=== PATIENT | female | born 1965 | race Caucasian/White ===

== ENCOUNTER 2019-06-22 16:22 | Emergency (ER) | payer MEDICAID ==
[~2019-06-22] VITALS: Ht 175.3 cm; Wt 59.2 kg
--- NOTE | 2019-06-22 16:46 | NUR ---
first contact with pt. pt reports LLQ abd pain with nausea starting this morning. pt denies any other sx at this time. pt's aox4. resps even and unlabored. bp/spo2 monitors in place. call light within reach.
[2019-06-22] MEDS ORDERED: ONDANSETRON 2MG/ML, 2ML ONE (16:55)
[2019-06-22] MEDS ORDERED: ONDANSETRON 2MG/ML, 2ML IVPush ONE (17:00)
[2019-06-22 17:16] LABS: BASOPHILS # (AUTO) 0.04 x10^3/uL (0-0.1); BASOPHILS % (AUTO) 1 % (0-1); EOSINOPHILS # (AUTO) 0.08 x10^3/uL (0-0.4); EOSINOPHILS % (AUTO) 2 % (1-7); LYMPHOCYTES # (AUTO) 0.68 x10^3/uL (1-3.4); LYMPHOCYTES % (AUTO) 17 % (22-44); MD NO; MEAN CORPUSCULAR HGB CONC 33.2 g/dL (32.4-35.8); MEAN CORPUSCULAR VOLUME 90.2 fL (80-100); MONOCYTES # (AUTO) 0.43 x10^3/uL (0.2-0.8); MONOCYTES % (AUTO) 11 % (2-9); NEUTROPHILS # (AUTO) 2.83 x10^3/uL (1.8-6.8); NEUTROPHILS % (AUTO) 70 % (42-75); PLATELET COUNT 220 x10^3/uL (130-400); RED BLOOD COUNT 4.66 x10^6/uL (3.82-5.3); RED CELL DISTRIBUTION WIDTH 14.1 % (9.6-15.2)
--- NOTE | 2019-06-22 17:17 | NUR ---
pt medicated per emar. pt tolerated well.
[2019-06-22 17:24] LABS: MICROSCOPIC AUTO
[2019-06-22 17:28] LABS: ALANINE AMINOTRANSFERASE 77 U/L (12-78); ALBUMIN 3.9 g/dL (3.4-5.0); ANION GAP 5 mmol/L (5-15); CALCIUM 9.3 mg/dL (8.5-10.1); CHLORIDE 107 mmol/L (98-107); CREATININE 0.86 mg/dL (0.55-1.02)
[2019-06-22 17:30] LABS: ALKALINE PHOSPHATASE 112 U/L (45-117); BILIRUBIN,TOTAL 0.8 mg/dL (0.2-1.0); TOTAL PROTEIN 8.3 g/dL (6.4-8.2)
[2019-06-22] MEDS ORDERED: MORPHINE SULFATE 4 MG/ML, 1ML ONE ×2 (17:44→18:33)
--- NOTE | 2019-06-22 17:49 | NUR ---
PT MEDICATED PER EMAR FOR PAIN. PT TOLERATED WELL.
[2019-06-22] MEDS ORDERED: MORPHINE SULFATE 4 MG/ML, 1ML IVPush ONE (18:00)
[2019-06-22] MEDS ORDERED: SODIUM CHLORIDE FLUSH 10ML SYR IVF ONE (18:00)
[2019-06-22] MEDS ORDERED: MORPHINE SULFATE 4 MG/ML, 1ML IVPush PRN (18:30)
--- NOTE | 2019-06-22 18:36 | NUR ---
PT MEDICATED PER EMAR FOR PAIN. PT TOLERATED WELL.
--- NOTE | 2019-06-22 19:01 | NUR ---
report given to edgard roca.
[2019-06-22] MEDS ORDERED: OMNIPAQUE 350 MG/ML, 100ML BOTTLE ONE (19:09)
[2019-06-22 20:07] VITALS: BP 164/88
== END 2019-06-22 20:09 | disposition home or self-care (01) ==
LOC: ED 19:45
DX: R10.32 Left lower quadrant pain (principal); F17.210 Nicotine dependence, cigarettes, uncomplicated
CPT/HCPCS: 36415; 74177; 80053; 81001; 83690; 85025; 96374; 96375; 96376; 99284; J2270; J2405; Q9967

== ENCOUNTER 2019-10-03 18:37 | Inpatient (IN) | payer MEDICAID ==
[~2019-10-03] VITALS: Ht 175.3 cm; Wt 63.5 kg
--- NOTE | 2019-10-03 19:18 | NUR ---
THIS IS A 53 YO F W/ C/O QUINN, BODYACHES, CHILLS, CHEST HEAVINESS, UPPR BACK PAIN, WEAKNESS.X2 DAYS. PT REPORTS NAUSEA W/ QUINN DENIES VOMITING/ABD PAIN. PT TACHYCARDIC AND HYPERTENSIVE. ALL OTHER VITALS IN NORMAL LIMITS. PT IS RESTING ON GURNEY W/ CALL LIGHT IN REACH. AWAITING ED EVAL.
[2019-10-03] MEDS ORDERED: METOCLOPRAMIDE 5 MG/ML, 2ML IVPush ONE (19:30)
[2019-10-03] MEDS ORDERED: SODIUM CHLORIDE 0.9% 1,000ML IVBOLUS ONE (19:30)
[2019-10-03] MEDS ORDERED: SODIUM CHLORIDE FLUSH 10ML SYR IVF ONE (19:30)
[2019-10-03] MEDS ORDERED: DIPHENHYDRAMINE 50 MG/ML, 1ML IVPush ONE (19:30)
[2019-10-03] MEDS ORDERED: DIPHENHYDRAMINE 50 MG/ML, 1ML ONE (19:39)
[2019-10-03] MEDS ORDERED: METOCLOPRAMIDE 5 MG/ML, 2ML ONE (19:39)
--- NOTE | 2019-10-03 20:00 | NUR ---
PIV STARTED. 1L NS STARTED, PT MEDICATED PER EMAR.
[2019-10-03] MEDS ORDERED: MORPHINE SULFATE 4 MG/ML, 1ML ONE (20:22)
[2019-10-03] MEDS ORDERED: MORPHINE SULFATE 4 MG/ML, 1ML IVPush PRN (20:30)
[2019-10-03] MEDS ORDERED: PLEASE ENTER ALLERGIES MC SCH (20:30)
--- NOTE | 2019-10-03 20:30 | NUR ---
PT MEDICATED WITH MORPHINE PER ORDER.
[2019-10-03 20:45] LABS: RAPID INFLUENZA A Negative (Negative); RAPID INFLUENZA B Negative (Negative)
--- NOTE | 2019-10-03 20:47 | NUR ---
PT TO RAD.
--- NOTE | 2019-10-03 21:20 | NUR ---
AT BEDSIDE UPDATING PT ON POC.
[2019-10-03] MEDS ORDERED: ASPIRIN 325 MG TABLET PO ONE (21:30)
--- NOTE | 2019-10-03 21:31 | NUR ---
CONCRETE FLOATER IN ROOM FOR REPEAT EKG.
[2019-10-03] MEDS ORDERED: ASPIRIN 325 MG TABLET ONE (21:34)
[2019-10-03] MEDS ORDERED: SODIUM CHLORIDE FLUSH 10ML SYR IVF PRN (22:00)
--- NOTE | 2019-10-03 22:33 | NUR ---
PT AMBULATED TO THE COMMODE W/ A STEADY GAIT.
--- NOTE | 2019-10-03 22:38 | NUR ---
REPORT GIVEN TO JIE HARMON. PT IS READY FOR TRANSFER.
[2019-10-03 23:21] VITALS: BP 168/95
[2019-10-03] MEDS ORDERED: ONDANSETRON 4 MG TABLET PO PRN (23:30)
[2019-10-03] MEDS ORDERED: DOCUSATE 100 MG CAPSULE PO PRN (23:30)
[2019-10-04 00:12] LABS: MEAN CORPUSCULAR HEMOGLOBIN 29.8 pg (27.0-34.8); MEAN CORPUSCULAR HGB CONC 33.5 g/dL (32.4-35.8); MEAN PLATELET VOLUME 8.2 fL (7.4-10.4); PLATELET COUNT 148 x10^3/uL (130-400); RED CELL DISTRIBUTION WIDTH 13.8 % (9.6-15.2)
[2019-10-04 00:16] LABS: MD YES
[2019-10-04 00:20] LABS: ALANINE AMINOTRANSFERASE 77 U/L (12-78); ALBUMIN 3.3 g/dL (3.4-5.0); ANION GAP 5 mmol/L (5-15); CALCIUM 8.1 mg/dL (8.5-10.1); CHLORIDE 104 mmol/L (98-107); CREATININE 0.74 mg/dL (0.55-1.02)
[2019-10-04 00:22] LABS: ALKALINE PHOSPHATASE 111 U/L (45-117); BILIRUBIN,TOTAL 0.6 mg/dL (0.2-1.0); TOTAL PROTEIN 6.9 g/dL (6.4-8.2)
[2019-10-04 00:24] LABS: <PLATELET ESTIMATE> ADEQUATE; <PLT MORPHOLOGY> NORMAL PLT MORPH; <RBC MORPHOLOGY> NORMAL; BASOS#(MANUAL) 0.03 x10^3/uL (0-0.1); BASOS% (MANUAL) 1 % (0-1); EOS#(MANUAL) 0.03 x10^3/uL (0.0-0.4); EOS% (MANUAL) 1 % (1-7); LYMPH#(MANUAL) 0.39 x10^3/uL (1-3.4); LYMPHS% (MANUAL) 13 % (22-44); MONOS#(MANUAL) 0.33 x10^3/uL (0.3-2.7); MONOS% (MANUAL) 11 % (2-9); REACTIVE LYMPHS # (MANUAL) 0.09 x10^3/uL (0-0); REACTIVE LYMPHS % (MANUAL) 3 % (0-0); SEG#(MANUAL) 2.13 x10^3/uL (1.8-6.8); SEGS% (MANUAL) 71 % (42-75)
[2019-10-04] MEDS: ATORVASTATIN 40 MG TABLET PO SCH ×2 (00:25→20:45)
[2019-10-04] MEDS: ACETAMINOPHEN 650 MG/20.3 ML UDC PO PRN ×3 (00:29→18:10)
[2019-10-04] MEDS ORDERED: MAGNESIUM SULFATE PMX 2GM/50ML 50 ML IV ONE (01:30)
[2019-10-04] MEDS ORDERED: SUMATRIPTAN 6MG/0.5ML SQ PRN (01:30)
[2019-10-04 01:56] VITALS: BP 137/85
[2019-10-04 06:23] LABS: CHOL/HDL RATIO 2.7; LDL/HDL RATIO 1.5 (0.5-3.0)
[2019-10-04 08:13] VITALS: BP 154/95
[2019-10-04] MEDS: ASPIRIN 81 MG TABLET CHEW PO/NG SCH (08:19)
[2019-10-04 10:00] VITALS: BP 153/87
[2019-10-04] MEDS: POTASSIUM CHLORIDE 20 MEQ TAB.ER.PRT PO SCH ×2 (12:38→14:45)
[2019-10-04 15:06] VITALS: BP 150/94
[2019-10-04] MEDS: SODIUM CHLORIDE 0.9% 1,000 ML IV SCH (18:11)
[2019-10-04] MEDS ORDERED: TEMAZEPAM 15 MG CAPSULE PO PRN (18:30)
[2019-10-04 20:36] VITALS: BP 136/83
[2019-10-04 22:38] LABS: MICROSCOPIC NOT IND
[2019-10-04 22:40] LABS: CULTURE INDICATED? NO
[2019-10-05 03:20] VITALS: BP 150/88
[2019-10-05] MEDS: SODIUM CHLORIDE 0.9% 1,000 ML IV SCH ×2 (05:01→14:00)
[2019-10-05 06:27] LABS: ALANINE AMINOTRANSFERASE 81 U/L (12-78); ALBUMIN 3.1 g/dL (3.4-5.0); ANION GAP 7 mmol/L (5-15); CALCIUM 8.1 mg/dL (8.5-10.1); CHLORIDE 106 mmol/L (98-107); CREATININE 0.82 mg/dL (0.55-1.02)
[2019-10-05 06:29] LABS: ALKALINE PHOSPHATASE 122 U/L (45-117); BILIRUBIN,TOTAL 0.4 mg/dL (0.2-1.0)
[2019-10-05 06:33] LABS: MEAN CORPUSCULAR HGB CONC 33.9 g/dL (32.4-35.8); MEAN CORPUSCULAR VOLUME 88.4 fL (80-100); MEAN PLATELET VOLUME 8.7 fL (7.4-10.4); PLATELET COUNT 150 x10^3/uL (130-400); RED BLOOD COUNT 4.55 x10^6/uL (3.82-5.3); RED CELL DISTRIBUTION WIDTH 14.2 % (9.6-15.2)
[2019-10-05 07:31] VITALS: BP 159/103
[2019-10-05 07:32] LABS: MD YES
[2019-10-05 07:35] LABS: BAND#(MANUAL) 0.25 x10^3/uL; BANDS%(MANUAL) 11 % (0-7); BASOS#(MANUAL) 0.05 x10^3/uL (0-0.1); BASOS% (MANUAL) 2 % (0-1); EOS#(MANUAL) 0.02 x10^3/uL (0.0-0.4); EOS% (MANUAL) 1 % (1-7); LYMPH#(MANUAL) 0.76 x10^3/uL (1-3.4); LYMPHS% (MANUAL) 33 % (22-44); MONOS#(MANUAL) 0.58 x10^3/uL (0.3-2.7); MONOS% (MANUAL) 25 % (2-9); SEG#(MANUAL) 0.64 x10^3/uL (1.8-6.8); SEGS% (MANUAL) 28 % (42-75)
[2019-10-05 07:36] LABS: <PLATELET ESTIMATE> ADEQUATE; <PLT MORPHOLOGY> NORMAL PLT MORPH; <RBC MORPHOLOGY> NORMAL
[2019-10-05 09:02] VITALS: BP 138/91
[2019-10-05] MEDS: ASPIRIN 81 MG TABLET CHEW PO/NG SCH (09:11)
[2019-10-05 13:17] VITALS: BP 139/98
[2019-10-05] MEDS ORDERED: SUMA50TA3 PO (14:25)
[2019-10-05] MEDS ORDERED: OXYC5TAB3 PO (14:28)
[2019-10-05] MEDS ORDERED: ATOR40TA78 PO (14:35)
[2019-10-05] MEDS ORDERED: ASPI-515 PO/NG (14:35)
== END 2019-10-05 15:45 | disposition home or self-care (01) | DRG 199 ==
LOC: ED 21:52 → EDIP 21:58 → 4WST 23:38
PROVIDERS: ADMIT Family Medicine; ATTEND Internal Medicine
DX: I16.0 Hypertensive urgency (principal); E83.42 Hypomagnesemia; E87.6 Hypokalemia; F31.9 Bipolar disorder, unspecified; G43.109 Migraine with aura, not intractable, without status migrainosus; G44.1 Vascular headache, not elsewhere classified; I10 Essential (primary) hypertension; Z88.6 Allergy status to analgesic agent; J06.9 Acute upper respiratory infection, unspecified; Z86.73 Personal history of transient ischemic attack (TIA), and cerebral infarction without residual deficits; Z87.891 Personal history of nicotine dependence; Z90.710 Acquired absence of both cervix and uterus
CPT/HCPCS: 36415; 70450; 70551; 71045; 80053; 80061; 81003; 82962; 83735; 84100; 85025; 87400; 93005; 93306; 93880; G0378; 92523-GN; J1200; J2270; J2765; J3030; J3475; J7030

== ENCOUNTER 2020-07-13 03:29 | Emergency (ER) | payer MEDICAID ==
[~2020-07-13] VITALS: Ht 175.3 cm; Wt 64.6 kg
[~2020-07-13 03:29] MED LIST: ASPI-515 PO/NG; ATOR40TA78 PO; OXYC5TAB3 PO; SUMA50TA3 PO
[2020-07-13] MEDS ORDERED: ACETAMINOPHEN 500 MG TABLET ONE (03:46)
[2020-07-13] MEDS ORDERED: KETOROLAC 30 MG/1 ML ONE (03:46)
--- NOTE | 2020-07-13 03:50 | NUR ---
PT MEDICATED PER MAR, TOLERATED WELL. LAB AT BEDSIDE AT THIS TIME
--- NOTE | 2020-07-13 03:52 | NUR ---
URINE SENT TO LAB
[2020-07-13] MEDS ORDERED: ACETAMINOPHEN 500 MG TABLET PO ONE (04:00)
[2020-07-13] MEDS ORDERED: KETOROLAC 30 MG/1 ML IM ONE (04:00)
[2020-07-13 04:14] LABS: BASOPHILS % (AUTO) 1 % (0-1); EOSINOPHILS % (AUTO) 1 % (1-7); LYMPHOCYTES % (AUTO) 14 % (22-44); MEAN CORPUSCULAR HEMOGLOBIN 30.3 pg (27.0-34.8); MEAN CORPUSCULAR HGB CONC 33.9 g/dL (32.4-35.8); MEAN PLATELET VOLUME 7.9 fL (7.4-10.4); MONOCYTES % (AUTO) 16 % (2-9); NEUTROPHILS % (AUTO) 68 % (42-75); PLATELET COUNT 197 x10^3/uL (130-400); RED BLOOD COUNT 4.29 x10^6/uL (3.82-5.3); RED CELL DISTRIBUTION WIDTH 13.2 % (9.6-15.2)
[2020-07-13 04:15] LABS: MD NO
[2020-07-13 04:51] LABS: ANION GAP 5 mmol/L (5-15); CHLORIDE 106 mmol/L (98-107)
[2020-07-13 04:52] LABS: ALBUMIN 3.2 g/dL (3.4-5.0); CREATININE 0.87 mg/dL (0.55-1.02)
[2020-07-13 05:05] LABS: MICROSCOPIC INDICATED
[2020-07-13 05:12] VITALS: BP 123/59
== END 2020-07-13 05:43 | disposition left against medical advice (07) ==
LOC: ED 03:59
DX: R30.0 Dysuria (principal); R50.9 Fever, unspecified; R10.9 Unspecified abdominal pain; M54.5 Low back pain; I10 Essential (primary) hypertension; G43.909 Migraine, unspecified, not intractable, without status migrainosus; Z86.73 Personal history of transient ischemic attack (TIA), and cerebral infarction without residual deficits; Z90.89 Acquired absence of other organs; Z90.710 Acquired absence of both cervix and uterus; Z87.891 Personal history of nicotine dependence
CPT/HCPCS: 36415; 80048; 81001; 82040; 85025; 87077; 87086; 96372; 99283; J1885; 87186

== ENCOUNTER 2020-09-19 23:41 | Emergency (ER) | payer MEDICAID ==
[~2020-09-19] VITALS: Ht 175.3 cm; Wt 61.4 kg
[~2020-09-19 23:41] MED LIST changes: -OXYC5TAB3 PO; +OXYC5TAB98 PO
--- NOTE | 2020-09-19 23:55 | NUR ---
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
[2020-09-20] MEDS ORDERED: SODIUM CHLORIDE 0.9% 1,000ML IVBOLUS ONE (00:30)
[2020-09-20] MEDS ORDERED: ONDANSETRON 2MG/ML, 2ML IVPush ONE (00:30)
[2020-09-20] MEDS ORDERED: SODIUM CHLORIDE FLUSH 10ML SYR IVF ONE (00:30)
[2020-09-20] MEDS ORDERED: ONDANSETRON 2MG/ML, 2ML ONE (00:41)
[2020-09-20] MEDS ORDERED: ACETAMINOPHEN 500 MG TABLET ONE (00:41)
--- NOTE | 2020-09-20 00:52 | NUR ---
PT AT CT
[2020-09-20 01:00] LABS: BASOPHILS % (AUTO) 1 % (0-1); EOSINOPHILS % (AUTO) 0 % (1-7); LYMPHOCYTES % (AUTO) 10 % (22-44); MD NO; MEAN CORPUSCULAR HEMOGLOBIN 30.2 pg (27.0-34.8); MEAN CORPUSCULAR HGB CONC 34.4 g/dL (32.4-35.8); MEAN PLATELET VOLUME 7.8 fL (7.4-10.4); MONOCYTES % (AUTO) 19 % (2-9); NEUTROPHILS % (AUTO) 70 % (42-75); PLATELET COUNT 146 x10^3/uL (130-400); RED BLOOD COUNT 3.96 x10^6/uL (3.82-5.3); RED CELL DISTRIBUTION WIDTH 13.4 % (9.6-15.2)
[2020-09-20] MEDS ORDERED: ACETAMINOPHEN 500 MG TABLET PO ONE (01:00)
[2020-09-20 01:11] LABS: ANION GAP 6 mmol/L (5-15); CALCIUM 7.9 mg/dL (8.5-10.1); CHLORIDE 102 mmol/L (98-107); CREATININE 0.93 mg/dL (0.55-1.02)
[2020-09-20 02:19] LABS: MICROSCOPIC AUTO
--- NOTE | 2020-09-20 03:00 | NUR ---
PT RESTING IN BED, PT ON MONITOR WITH VSS. NO PT WANTS OR NEEDS AT THIS TIME
[2020-09-20 03:43] VITALS: BP 134/86
== END 2020-09-20 03:45 | disposition home or self-care (01) ==
LOC: ED 09-20 03:00
DX: R51.9 Headache, unspecified (principal); N39.0 Urinary tract infection, site not specified; R42 Dizziness and giddiness; R53.1 Weakness; R50.9 Fever, unspecified; I10 Essential (primary) hypertension; I49.3 Ventricular premature depolarization; R00.0 Tachycardia, unspecified; Z86.73 Personal history of transient ischemic attack (TIA), and cerebral infarction without residual deficits; Z90.89 Acquired absence of other organs; Z90.710 Acquired absence of both cervix and uterus
CPT/HCPCS: 36415; 70450; 71045; 80048; 81001; 82962; 83605; 85025; 87040; 87077; 87086; 93005; 96361; 96374; 99285; J2405; J7030; 87186

== ENCOUNTER 2020-09-20 21:55 | Emergency (ER) | payer MEDICAID ==
[~2020-09-20] VITALS: Ht 170.2 cm; Wt 65.5 kg
[2020-09-20] MEDS ORDERED: KETOROLAC 30 MG/1 ML ONE (22:21)
[2020-09-20] MEDS ORDERED: PROCHLORPERAZINE 5 MG/ML, 2ML ONE (22:21)
[2020-09-20] MEDS ORDERED: KETOROLAC 30 MG/1 ML IVPush ONE (22:30)
[2020-09-20] MEDS ORDERED: DIPHENHYDRAMINE 50 MG/ML, 1ML IVPush ONE (22:30)
[2020-09-20] MEDS ORDERED: PROCHLORPERAZINE 5 MG/ML, 2ML IVPush ONE (22:30)
[2020-09-20] MEDS ORDERED: DIPHENHYDRAMINE 50 MG/ML, 1ML ONE (22:45)
[2020-09-20 22:58] LABS: BASOPHILS % (AUTO) 0 % (0-1); EOSINOPHILS % (AUTO) 0 % (1-7); HCT (SEDRATE) 36.8 % (34.6-47.8); LYMPHOCYTES % (AUTO) 6 % (22-44); MEAN CORPUSCULAR HEMOGLOBIN 30.1 pg (27.0-34.8); MEAN CORPUSCULAR HGB CONC 34.6 g/dL (32.4-35.8); MEAN PLATELET VOLUME 7.9 fL (7.4-10.4); MONOCYTES % (AUTO) 15 % (2-9); NEUTROPHILS % (AUTO) 79 % (42-75); PLATELET COUNT 144 x10^3/uL (130-400); RED BLOOD COUNT 4.28 x10^6/uL (3.82-5.3)
[2020-09-20 23:01] LABS: ALBUMIN 3.2 g/dL (3.4-5.0); ANION GAP 7 mmol/L (5-15); CALCIUM 8.2 mg/dL (8.5-10.1); CHLORIDE 97 mmol/L (98-107); CREATININE 0.75 mg/dL (0.55-1.02)
--- NOTE | 2020-09-20 23:08 | NUR ---
PT RESTING IN [facility]. PT STATES SHE HAS A QUINN 10/10 PAIN AND RIGHT UPPER ABD PAIN. MONITORING IN PLACE, NADN AT THIS TIME, MEDICATED PER EMAR, WCJAMIR.
[2020-09-20 23:38] LABS: MD SCAN
[2020-09-21 00:16] VITALS: BP 158/101
== END 2020-09-21 00:35 | disposition home or self-care (01) ==
LOC: ED 23:11
DX: R51.9 Headache, unspecified (principal); N30.00 Acute cystitis without hematuria; H53.149 Visual discomfort, unspecified; I10 Essential (primary) hypertension; Z90.89 Acquired absence of other organs; Z90.710 Acquired absence of both cervix and uterus; Z87.891 Personal history of nicotine dependence; Z86.73 Personal history of transient ischemic attack (TIA), and cerebral infarction without residual deficits
CPT/HCPCS: 36415; 80048; 82040; 85025; 85651; 96374; 96375; 99284; J0780; J1200; J1885